=== PATIENT | male | born 1960 | race Caucasian/White ===

== ENCOUNTER 2022-02-25 18:09 | Emergency (ER) | payer BC ==
[2022-02-25 19:11] LABS: CORONAVIRUS COVID-19 NAA NEGATIVE (NEGATIVE); INFLUENZA A NAA NEGATIVE (NEGATIVE); INFLUENZA B NAA NEGATIVE (NEGATIVE); RESPIRATORY SYNCYTIAL VIR NAA NEGATIVE (NEGATIVE)
[2022-02-25 19:33] LABS: CARBON DIOXIDE,CO2 25.2 mmol/L (21.0-32.0); POTASSIUM,K 4.3 mmol/L (3.5-5.1)
[2022-02-25] MEDS ORDERED: Heparin Sodium 5,000 Units/ML Vial IVPUSH STA (20:01)
[2022-02-25] MEDS ORDERED: Heparin Sodium/0.45% NaCl 500 ML IV SCH (20:15)
[2022-02-25] MEDS ORDERED: Heparin Sodium/0.45% NaCl 500 ML ONE (20:18)
[2022-02-25] MEDS ORDERED: Aspirin 81 MG Tab.Chew PO ONE (20:19)
[2022-02-25] MEDS ORDERED: Aspirin 81 MG Tab.Chew ONE (20:19)
[2022-02-26] MEDS ORDERED: Aspirin 81 MG Tab.Chew PO SCH (09:00)
== END 2022-02-25 22:45 ==
LOC: MW.ED 18:09
DX: I21.3 ST elevation (STEMI) myocardial infarction of unspecified site (principal); I10 Essential (primary) hypertension; E11.9 Type 2 diabetes mellitus without complications; F17.210 Nicotine dependence, cigarettes, uncomplicated; Z79.899 Other long term (current) drug therapy; Z79.84 Long term (current) use of oral hypoglycemic drugs; Z20.822 Contact with and (suspected) exposure to COVID-19
CPT/HCPCS: 0241U; 36415; 71046; 80053; 83880; 84484; 85027; 93005; 96365; 96366; 99285; A9270; J1644

== ENCOUNTER 2022-06-15 22:47 | Inpatient (IN) | payer BC ==
[2022-06-15] MEDS ORDERED: Sodium Chloride 0.9% 10 ML Syringe FLUSH PRN (23:14)
[2022-06-15] MEDS ORDERED: Sodium Chloride 0.9% 2.5 ML Syringe FLUSH PRN (23:14)
[2022-06-15 23:37] LABS: CARBON DIOXIDE,CO2 26.5 mmol/L (21.0-32.0); POTASSIUM,K 4.5 mmol/L (3.5-5.1)
[2022-06-16 00:15] LABS: CORONAVIRUS COVID-19 NAA NEGATIVE (NEGATIVE); INFLUENZA A NAA NEGATIVE (NEGATIVE); INFLUENZA B NAA NEGATIVE (NEGATIVE); RESPIRATORY SYNCYTIAL VIR NAA NEGATIVE (NEGATIVE)
[2022-06-16] MEDS ORDERED: Iopamidol 755 MG/ML 500 ML Multipack Bottle IVPUSH ONE (00:27)
[2022-06-16] MEDS ORDERED: methylPREDNISolone Sodium Succinate 125 MG/2 ML SDV IVPUSH ONE (00:37)
[2022-06-16] MEDS ORDERED: diphenhydrAMINE 50 MG/ML SDV IVPUSH ONE (00:37)
[2022-06-16] MEDS ORDERED: Cefepime 2 GM in Sodium Chloride 0.9% 50 ML IV ONE (02:58)
[2022-06-16] MEDS ORDERED: VANCOmycin 1.5 GM/300 ML 1.5 GM in Premix Bag 1 BAG IV ONE (03:30)
[2022-06-16] MEDS ORDERED: 50% Dextrose in Water 50 ML Syringe IVPUSH PRN (05:06)
[2022-06-16] MEDS ORDERED: Glucagon,Human Recombinant 1 MG Vial IM PRN (05:06)
[2022-06-16 06:02] LABS: CARBON DIOXIDE,CO2 23.5 mmol/L (21.0-32.0); POTASSIUM,K 4.4 mmol/L (3.5-5.1)
[2022-06-16] MEDS: Insulin Aspart 100 Units/ML 3 ML Pen SUBCUT SCH ×3 (07:58→16:43)
[2022-06-16] MEDS ORDERED: Non-Formulary Medication 1 Each (Gabapentin 600 MG) PO SCH (08:35)
[2022-06-16] MEDS: Aspirin 81 MG Tab.Chew PO SCH (09:38)
[2022-06-16] MEDS: Gabapentin 300 MG Cap PO SCH ×3 (09:38→21:06)
[2022-06-16] MEDS: Clopidogrel 75 MG Tab PO SCH (09:39)
[2022-06-16] MEDS: Meloxicam 7.5 MG Tab PO SCH (09:39)
[2022-06-16 09:47] LABS: HEMOGLOBIN A1C 8.5 %
[2022-06-16] MEDS: Spironolactone 25 MG Tab PO SCH (10:16)
[2022-06-16] MEDS: Metoprolol Succinate 25 MG Tab.ER PO SCH (10:17)
[2022-06-16] MEDS: Azithromycin 500 MG in Sodium Chloride 0.9% 250 ML IV SCH (10:20)
[2022-06-16] MEDS: amLODIPine 5 MG Tab PO SCH (10:20)
[2022-06-16] MEDS: Insulin Glargine,Hum.Rec.Anlog 100 UNIT/ML 3 ML Pen SUBCUT SCH (10:31)
[2022-06-16] MEDS ORDERED: Azithromycin 500 MG in Sodium Chloride 0.9% 250 ML IV SCH (12:00)
[2022-06-16] MEDS: Enoxaparin 40 MG/0.4 ML Syringe SUBCUT SCH (12:03)
[2022-06-16] MEDS: Losartan 50 MG Tab PO SCH (12:03)
[2022-06-16] MEDS: cefTRIAXone 1 GM in Sodium Chloride 0.9% 50 ML IV SCH (12:03)
[2022-06-16] MEDS ORDERED: Gabapentin 300 MG Cap PO SCH (14:00)
[2022-06-16] MEDS: atorvaSTATin 40 MG Tab PO SCH (21:06)
[2022-06-17] MEDS: Gabapentin 300 MG Cap PO SCH ×3 (06:13→21:03)
[2022-06-17] MEDS: Benzonatate 100 MG Cap PO PRN (06:17)
[2022-06-17] MEDS: Insulin Aspart 100 Units/ML 3 ML Pen SUBCUT SCH ×3 (07:57→16:21)
[2022-06-17 08:05] LABS: CARBON DIOXIDE,CO2 24.1 mmol/L (21.0-32.0); POTASSIUM,K 4.2 mmol/L (3.5-5.1)
[2022-06-17] MEDS: amLODIPine 5 MG Tab PO SCH (09:30)
[2022-06-17] MEDS: Aspirin 81 MG Tab.Chew PO SCH (09:32)
[2022-06-17] MEDS: Meloxicam 7.5 MG Tab PO SCH (09:33)
[2022-06-17] MEDS: Clopidogrel 75 MG Tab PO SCH (09:34)
[2022-06-17] MEDS: Spironolactone 25 MG Tab PO SCH (09:34)
[2022-06-17] MEDS: Losartan 50 MG Tab PO SCH (09:40)
[2022-06-17] MEDS: Metoprolol Succinate 25 MG Tab.ER PO SCH (09:40)
[2022-06-17] MEDS: Insulin Glargine,Hum.Rec.Anlog 100 UNIT/ML 3 ML Pen SUBCUT SCH (09:41)
[2022-06-17] MEDS: Azithromycin 500 MG in Sodium Chloride 0.9% 250 ML IV SCH (09:44)
[2022-06-17] MEDS: Enoxaparin 40 MG/0.4 ML Syringe SUBCUT SCH (11:01)
[2022-06-17] MEDS: cefTRIAXone 1 GM in Sodium Chloride 0.9% 50 ML IV SCH (11:01)
[2022-06-17] MEDS: Acetaminophen 325 MG Tab PO PRN ×2 (11:16→18:46)
[2022-06-17] MEDS: Albuterol/Ipratropium 3.0-0.5 MG/3 ML Neb Soln NEB PRN (12:03)
[2022-06-17] MEDS: atorvaSTATin 40 MG Tab PO SCH (21:03)
[2022-06-18] MEDS: Gabapentin 300 MG Cap PO SCH ×3 (06:25→21:06)
[2022-06-18] MEDS ORDERED: guaiFENesin/Dextromethorphan 100-10 MG/5 ML Soln 10 ML Cup PO PRN (07:05)
[2022-06-18 07:29] LABS: CARBON DIOXIDE,CO2 26.4 mmol/L (21.0-32.0); POTASSIUM,K 4.2 mmol/L (3.5-5.1)
[2022-06-18] MEDS: Insulin Aspart 100 Units/ML 3 ML Pen SUBCUT SCH ×3 (07:37→17:10)
[2022-06-18] MEDS: Albuterol/Ipratropium 3.0-0.5 MG/3 ML Neb Soln NEB PRN (09:39)
[2022-06-18] MEDS: Enoxaparin 40 MG/0.4 ML Syringe SUBCUT SCH (10:07)
[2022-06-18] MEDS: Aspirin 81 MG Tab.Chew PO SCH (10:07)
[2022-06-18] MEDS: Meloxicam 7.5 MG Tab PO SCH (10:07)
[2022-06-18] MEDS: amLODIPine 5 MG Tab PO SCH (10:08)
[2022-06-18] MEDS: Clopidogrel 75 MG Tab PO SCH (10:09)
[2022-06-18] MEDS: Spironolactone 25 MG Tab PO SCH (10:09)
[2022-06-18] MEDS: Metoprolol Succinate 25 MG Tab.ER PO SCH (10:09)
[2022-06-18] MEDS: Insulin Glargine,Hum.Rec.Anlog 100 UNIT/ML 3 ML Pen SUBCUT SCH (10:11)
[2022-06-18] MEDS: Azithromycin 500 MG in Sodium Chloride 0.9% 250 ML IV SCH (10:15)
[2022-06-18] MEDS: Losartan 50 MG Tab PO SCH (10:20)
[2022-06-18] MEDS: cefTRIAXone 1 GM in Sodium Chloride 0.9% 50 ML IV SCH (11:22)
[2022-06-18] MEDS: atorvaSTATin 40 MG Tab PO SCH (21:05)
[2022-06-18] MEDS: Benzonatate 100 MG Cap PO PRN (21:06)
[2022-06-19] MEDS: Gabapentin 300 MG Cap PO SCH (06:28)
[2022-06-19 07:35] LABS: CARBON DIOXIDE,CO2 28.1 mmol/L (21.0-32.0); POTASSIUM,K 4.4 mmol/L (3.5-5.1)
[2022-06-19] MEDS: Insulin Aspart 100 Units/ML 3 ML Pen SUBCUT SCH (07:39)
[2022-06-19] MEDS: Spironolactone 25 MG Tab PO SCH (09:24)
[2022-06-19] MEDS: Aspirin 81 MG Tab.Chew PO SCH (09:25)
[2022-06-19] MEDS: Losartan 50 MG Tab PO SCH (09:25)
[2022-06-19] MEDS: Meloxicam 7.5 MG Tab PO SCH (09:28)
[2022-06-19] MEDS: amLODIPine 5 MG Tab PO SCH (09:29)
[2022-06-19] MEDS: Clopidogrel 75 MG Tab PO SCH (09:30)
[2022-06-19] MEDS: Metoprolol Succinate 25 MG Tab.ER PO SCH (09:30)
[2022-06-19] MEDS: Azithromycin 500 MG in Sodium Chloride 0.9% 250 ML IV SCH (09:32)
[2022-06-19] MEDS: cefTRIAXone 1 GM in Sodium Chloride 0.9% 50 ML IV SCH (10:46)
[2022-06-19] MEDS: Insulin Glargine,Hum.Rec.Anlog 100 UNIT/ML 3 ML Pen SUBCUT SCH (10:54)
[2022-06-19] MEDS: Enoxaparin 40 MG/0.4 ML Syringe SUBCUT SCH (10:55)
== END 2022-06-19 12:30 | disposition home or self-care (01) | DRG 139 ==
LOC: MW.ED 22:47 → MW.MS 06-16 03:04
PROVIDERS: ADMIT Internal Medicine; ATTEND Internal Medicine
DX: J18.9 Pneumonia, unspecified organism (principal); J96.01 Acute respiratory failure with hypoxia; E11.9 Type 2 diabetes mellitus without complications; I10 Essential (primary) hypertension; I25.10 Atherosclerotic heart disease of native coronary artery without angina pectoris; Z20.822 Contact with and (suspected) exposure to COVID-19; J84.9 Interstitial pulmonary disease, unspecified; I25.2 Old myocardial infarction; Z79.899 Other long term (current) drug therapy; Z79.4 Long term (current) use of insulin; Z79.82 Long term (current) use of aspirin; Z91.041 Radiographic dye allergy status; Z95.5 Presence of coronary angioplasty implant and graft; Z98.890 Other specified postprocedural states; Z79.02 Long term (current) use of antithrombotics/antiplatelets
CPT/HCPCS: 0241U; 36415; 71046; 71046-26; 71275; 71275-26; 80048; 80053; 82947; 83036; 83605; 83880; 84484; 85025; 87040; 93005; 93010; 94640; 96374; 96375; 99222; 99231; 99239; 99285; 99285-25; A9270-GY; J0456; J0692; J0696; J1200; J1650; J1815-GY; J2930; J3370; J3490; J7050; J7620-GY; Q9967

== ENCOUNTER 2023-03-05 14:49 | Inpatient (IN) | payer MEDICAID ==
[2023-03-05] MEDS ORDERED: Sodium Chloride 0.9% 10 ML Syringe FLUSH PRN ×2 (15:53→22:49)
[2023-03-05] MEDS ORDERED: Sodium Chloride 0.9% 2.5 ML Syringe FLUSH PRN ×2 (15:53→22:49)
[2023-03-05] MEDS ORDERED: Sodium Chloride 0.9% 1,000 ML IV STA (15:54)
[2023-03-05 16:28] LABS: BASE EXCESS VENOUS -1.6 (-2.0-3.0); BASOPHILS ABSOLUTE AUTO 0.09 K/uL (0.00-0.20); BASOPHILS PERCENT AUTO 0.8 % (0.0-1.0); BICARBONATE,VENOUS 25 mEq/L (23-28); EOSINOPHILS ABSOLUTE AUTO 0.13 K/uL (0.00-0.45); EOSINOPHILS PERCENT AUTO 1.1 % (0.0-6.0); HEMATOCRIT 39.6 % (42.0-52.0); IMMATURE GRAN ABSOLUTE AUTO 0.07 K/uL (0.00-0.05); IMMATURE GRAN PERCENT AUTO 0.6 % (0.0-0.4); LYMPHOCYTES ABSOLUTE AUTO 2.89 K/uL (1.00-4.80); LYMPHOCYTES PERCENT AUTO 24.7 % (24.0-44.0); MEAN CORPUSCULAR HGB CONC 35.4 g/dL (32.0-36.0); MEAN CORPUSCULAR VOLUME 90.6 fL (83.0-99.0); MEAN PLATELET VOLUME 9.3 fL (9.4-12.4); MONOCYTES ABSOLUTE AUTO 1.12 K/uL (0.00-0.80); MONOCYTES PERCENT AUTO 9.6 % (0.0-8.0); NEUTROPHILS ABSOLUTE AUTO 7.41 K/uL (1.80-7.70); NEUTROPHILS PERCENT AUTO 63.2 % (41.0-71.0); PCO2 VENOUS 46 mmHG (41-51); PH,VENOUS 7.33 (7.31-7.41); PLATELET COUNT,PLT 239 K/uL (150-400); RED BLOOD CELL COUNT 4.37 M/uL (4.52-5.90); WHITE BLOOD CELL COUNT,WBC 11.71 K/uL (3.9-11.3)
[2023-03-05 16:34] LABS: PO2 VENOUS < 30 mmHG
[2023-03-05 16:41] LABS: APPEARANCE,URINE CLEAR; BILIRUBIN,URINE NEGATIVE (NEGATIVE); COLOR,URINE YELLOW; GLUCOSE,URINE >=1000 mg/dL (NEGATIVE); KETONES,URINE 15 mg/dL (NEGATIVE); LEUKOCYTE ESTERASE,URINE NEGATIVE (NEGATIVE); NITRITE,URINE NEGATIVE (NEGATIVE); OCCULT BLOOD,URINE NEGATIVE (NEGATIVE); PH,URINE 5.5 (5.0-8.0); PROTEIN,URINE NEGATIVE (NEGATIVE); UROBILINOGEN,URINE 0.2 EU/dL (<2.0)
[2023-03-05 17:06] LABS: ALBUMIN 3.6 g/dL (3.4-5.0); BILIRUBIN TOTAL 0.4 mg/dL (0.2-1.0); CALCIUM 8.5 mg/dL (8.5-10.1); CARBON DIOXIDE,CO2 23.4 mmol/L (21.0-32.0); CREATININE 1.4 mg/dL (0.8-1.3); EST CRCL DRUG DOSING (CG) 50.49 mL/min; MAGNESIUM 1.9 mg/dL (1.8-2.4); PHOSPHORUS 4.3 mg/dL (2.6-4.7); PROTEIN TOTAL,TP 7.2 g/dL (6.4-8.2); TSH ULTRASENSITIVE 1.66 uIU/mL (0.36-3.74)
[2023-03-05] MEDS ORDERED: Insulin Regular, Human 100 Units/ML 10 ML Vial IVPUSH ONE (17:11)
[2023-03-05] MEDS ORDERED: Sodium Chloride 0.9% 500 ML IV SCH (17:15)
[2023-03-05 18:22] LABS: LACTIC ACID 1.3 mmol/L (0.4-2.0)
[2023-03-05 18:38] LABS: CALCIUM 7.7 mg/dL (8.5-10.1); CARBON DIOXIDE,CO2 21.5 mmol/L (21.0-32.0); CREATININE 1.2 mg/dL (0.8-1.3); EST CRCL DRUG DOSING (CG) 58.91 mL/min; POTASSIUM,K 4.1 mmol/L (3.5-5.1)
[2023-03-05 18:57] LABS: PH,VENOUS 7.3 (7.31-7.41)
[2023-03-05] MEDS ORDERED: Insulin Regular in 0.9 % NACL 100 ML ONE (19:35)
[2023-03-05] MEDS ORDERED: Insulin Regular in 0.9 % NACL 100 ML IV SCH (19:46)
[2023-03-05 20:12] LABS: POTASSIUM,K 4.3 mmol/L (3.5-5.1)
[2023-03-05 21:26] LABS: CALCIUM 8.2 mg/dL (8.5-10.1); CARBON DIOXIDE,CO2 25.6 mmol/L (21.0-32.0); CREATININE 1.2 mg/dL (0.8-1.3); EST CRCL DRUG DOSING (CG) 58.91 mL/min; POTASSIUM,K 4.1 mmol/L (3.5-5.1)
[2023-03-05] MEDS ORDERED: 50% Dextrose in Water 50 ML Syringe IVPUSH PRN (21:48)
[2023-03-05] MEDS ORDERED: Insulin Glargine,Hum.Rec.Anlog 100 UNIT/ML 3 ML Pen SUBCUT ONE (21:48)
[2023-03-05] MEDS ORDERED: Glucagon,Human Recombinant 1 MG Vial IM PRN (21:48)
[2023-03-05] MEDS: Gabapentin 300 MG Cap PO SCH (22:29)
[2023-03-05] MEDS ORDERED: Sodium Chloride 0.9% 20 ML SDV IV PRN (22:49)
[2023-03-05] MEDS ORDERED: Albuterol/Ipratropium 3.0-0.5 MG/3 ML Neb Soln NEB PRN (22:49)
[2023-03-05] MEDS ORDERED: Polyethylene Glycol 3350 Powder 17 GM Packet PO PRN (22:49)
[2023-03-05] MEDS ORDERED: Acetaminophen 650 MG Supp RECTAL PRN (22:49)
[2023-03-05] MEDS ORDERED: Ondansetron 4 MG/2 ML SDV IVPUSH PRN (22:49)
[2023-03-05] MEDS ORDERED: Pantoprazole 40 MG in Sodium Chloride 0.9% 10 ML IVPUSH SCH (23:00)
[2023-03-05] MEDS ORDERED: Sodium Chloride 0.9% 1,000 ML IV SCH (23:00)
[2023-03-06] MEDS: Insulin Aspart 100 Units/ML 3 ML Pen SUBCUT SCH ×2 (01:23→07:55)
[2023-03-06] MEDS: Acetaminophen 325 MG Tab PO PRN ×2 (02:04→08:00)
[2023-03-06] MEDS: Gabapentin 300 MG Cap PO SCH (05:25)
[2023-03-06 05:58] LABS: BASOPHILS ABSOLUTE AUTO 0.07 K/uL (0.00-0.20); BASOPHILS PERCENT AUTO 0.7 % (0.0-1.0); EOSINOPHILS ABSOLUTE AUTO 0.35 K/uL (0.00-0.45); EOSINOPHILS PERCENT AUTO 3.6 % (0.0-6.0); HEMATOCRIT 36.4 % (42.0-52.0); HEMOGLOBIN 12.6 g/dL (14.0-18.0); IMMATURE GRAN ABSOLUTE AUTO 0.05 K/uL (0.00-0.05); IMMATURE GRAN PERCENT AUTO 0.5 % (0.0-0.4); LYMPHOCYTES ABSOLUTE AUTO 3.35 K/uL (1.00-4.80); LYMPHOCYTES PERCENT AUTO 34.1 % (24.0-44.0); MEAN CORPUSCULAR HEMOGLOBIN 31.3 pg (28.0-32.0); MEAN CORPUSCULAR HGB CONC 34.6 g/dL (32.0-36.0); MEAN CORPUSCULAR VOLUME 90.5 fL (83.0-99.0); MEAN PLATELET VOLUME 9.6 fL (9.4-12.4); MONOCYTES ABSOLUTE AUTO 0.91 K/uL (0.00-0.80); MONOCYTES PERCENT AUTO 9.3 % (0.0-8.0); NEUTROPHILS ABSOLUTE AUTO 5.09 K/uL (1.80-7.70); NEUTROPHILS PERCENT AUTO 51.8 % (41.0-71.0); PLATELET COUNT,PLT 215 K/uL (150-400); RED BLOOD CELL COUNT 4.02 M/uL (4.52-5.90); WHITE BLOOD CELL COUNT,WBC 9.82 K/uL (3.9-11.3)
[2023-03-06 06:24] LABS: CALCIUM 7.7 mg/dL (8.5-10.1); CREATININE 0.9 mg/dL (0.8-1.3); EST CRCL DRUG DOSING (CG) 78.54 mL/min; POTASSIUM,K 3.9 mmol/L (3.5-5.1)
[2023-03-06] MEDS ORDERED: Insulin Aspart 100 Units/ML 3 ML Pen SUBCUT SCH (07:30)
[2023-03-06 09:56] LABS: HEMOGLOBIN A1C >14.0 %
[2023-03-06] MEDS ORDERED: Enoxaparin 40 MG/0.4 ML Syringe SUBCUT SCH (11:00)
== END 2023-03-06 11:05 | disposition home or self-care (01) | DRG 639 ==
LOC: MW.ED 14:49 → MW.ICU 19:31
PROVIDERS: ADMIT Family Medicine; ATTEND Family Medicine
DX: E11.10 Type 2 diabetes mellitus with ketoacidosis without coma (principal); I10 Essential (primary) hypertension; E11.65 Type 2 diabetes mellitus with hyperglycemia; E86.0 Dehydration; I25.10 Atherosclerotic heart disease of native coronary artery without angina pectoris; I25.2 Old myocardial infarction; Z79.84 Long term (current) use of oral hypoglycemic drugs; Z79.899 Other long term (current) drug therapy; Z11.52 Encounter for screening for COVID-19; Z79.02 Long term (current) use of antithrombotics/antiplatelets; Z91.041 Radiographic dye allergy status; Z79.82 Long term (current) use of aspirin; Z79.4 Long term (current) use of insulin; Z79.2 Long term (current) use of antibiotics; Z98.890 Other specified postprocedural states; Z95.5 Presence of coronary angioplasty implant and graft
CPT/HCPCS: 36415; 71045; 71045-26; 80048; 80053; 81003; 82009; 82803; 82947; 83036; 83605; 83690; 83735; 84100; 84132; 84443; 84484; 85025; 87040; 93005; 93010; 96360; 99285; 99291; A9270-GY; C9113; J1815; J1815-GY; J3490; J7030; J7040; U0002

== ENCOUNTER 2023-10-30 06:03 | Day surgery (SDC) | payer MEDICAID ==
[2023-10-30] MEDS: Lactated Ringers 1,000 ML IV SCH (07:00)
[2023-10-30] MEDS ORDERED: Lidocaine 2% 5 ML SDV ONE (07:41)
[2023-10-30] MEDS ORDERED: Propofol 200 MG/20 ML SDV ONE (07:41)
== END 2023-10-30 09:04 | disposition home or self-care (01) ==
LOC: MW.SDS 06:03
PROVIDERS: ATTEND Surgery
DX: Z12.11 Encounter for screening for malignant neoplasm of colon (principal); K57.30 Diverticulosis of large intestine without perforation or abscess without bleeding; I11.0 Hypertensive heart disease with heart failure; I50.33 Acute on chronic diastolic (congestive) heart failure; E11.40 Type 2 diabetes mellitus with diabetic neuropathy, unspecified; I25.10 Atherosclerotic heart disease of native coronary artery without angina pectoris; I25.2 Old myocardial infarction; J44.9 Chronic obstructive pulmonary disease, unspecified; F17.210 Nicotine dependence, cigarettes, uncomplicated; Z95.5 Presence of coronary angioplasty implant and graft; Z79.82 Long term (current) use of aspirin; Z79.4 Long term (current) use of insulin; Z79.84 Long term (current) use of oral hypoglycemic drugs; Z79.899 Other long term (current) drug therapy
CPT/HCPCS: 45378; J2704; J7120; 00812; J3490